=== PATIENT | male | born 2000 | race Caucasian/White ===

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

== ENCOUNTER 2022-02-05 23:10 | Emergency (ER) | payer MEDICAID ==
[~2022-02-05] VITALS: Ht 193 cm; Wt 114.0 kg
[2022-02-05 23:43] VITALS: BP 122/88
[2022-02-06] MEDS ORDERED: ACETAMINOPHEN 325MG TABLET PO ONE (00:15)
== END 2022-02-06 02:04 | disposition home or self-care (01) ==
LOC: ER 23:10
DX: S63.591A Other specified sprain of right wrist, initial encounter (principal); Y04.0XXA Assault by unarmed brawl or fight, initial encounter; Y93.89 Activity, other specified; Y92.89 Other specified places as the place of occurrence of the external cause
CPT/HCPCS: 29125; 73110; 73130; 99284

== ENCOUNTER 2022-07-20 04:06 | Emergency (ER) | payer MEDICAID ==
[~2022-07-20] VITALS: Ht 193 cm; Wt 103.6 kg
[2022-07-20] MEDS ORDERED: ONDANSETRON HCL 4MG/2ML INJ IV STA (08:18)
[2022-07-20] MEDS ORDERED: MORPHINE SULFATE 4 MG/ML CPJ (NOT FOR IM USE) IV STA (08:18)
[2022-07-20] MEDS ORDERED: SODIUM CHLORIDE 0.9% 1,000 ML IV ONE (08:30)
[2022-07-20 09:38] LABS: CLARITY URINE CLEAR (CLEAR); COLOR URINE YELLOW (YELLOW); KETONES URINE TRACE (NEGATIVE); LEUKOCYTE ESTERASE URINE NEGATIVE (NEGATIVE); NITRITE URINE NEGATIVE (NEGATIVE); OCCULT BLOOD URINE NEGATIVE (NEGATIVE); PH URINE 5.5 (4.5-8.0); PROTEIN URINE NEGATIVE (NEGATIVE); SPECIFIC GRAVITY URINE 1.024 (1.005-1.030); UROBILINOGEN URINE 0.2 E.U./dL (0.2-1.0)
[2022-07-20 09:41] LABS: BASOPHILS % 0.3 % (0.0-2.0); HEMATOCRIT. 44.1 % (42.0-52.0); HEMOGLOBIN. 15.1 g/dL (14.0-18.0); LYMPHOCYTES % 22.2 % (20.0-50.0); MEAN CORPUSCULAR HEMOGLOBIN 29.9 pg (28.0-32.0); MEAN CORPUSCULAR VOLUME 87.1 fL (80.0-94.0); MEAN PLATELET VOLUME 7.9 fl (7.4-10.4); MONOCYTES % 7.4 % (2.0-8.0); NEUTROPHILS % 69.1 % (40.0-76.0); PLATELET 282 x1000/uL (130-400); RED BLOOD CELL COUNT 5.06 mill/uL (4.7-6.1); RED CELL DISTRIBUTION WIDTH 13.6 % (11.6-14.6)
[2022-07-20 10:00] LABS: *AMPHETAMINES SCREEN URINE NEGATIVE (NEGATIVE); *BARBITURATES SCREEN URINE NEGATIVE (NEGATIVE); *BENZODIAZEPINES SCREEN URINE NEGATIVE (NEGATIVE); *COCAINE SCREEN URINE NEGATIVE (NEGATIVE); CANNABINOID URINE SCREEN PRESUMTIVE POSITIVE (NEGATIVE); METHADONE URINE SCREEN NEGATIVE (NEGATIVE); OPIATES URINE SCREEN NEGATIVE (NEGATIVE); PHENCYCLIDINE URINE SCREEN NEGATIVE (NEGATIVE)
[2022-07-20 10:10] LABS: CHLORIDE 105 mEq/L (98-107)
[2022-07-20 10:19] LABS: ETHANOL BLOOD < 10 mg/dL
[2022-07-20] MEDS ORDERED: MORPHINE SULFATE 4 MG/ML CPJ (NOT FOR IM USE) IV NR (10:30)
[2022-07-20] MEDS ORDERED: ONDANSETRON HCL 4MG/2ML INJ IV NR (10:30)
[2022-07-20] MEDS ORDERED: OMEP20CA14 MT (12:01)
[2022-07-20] MEDS ORDERED: ONDA4TAB11 PO (12:01)
[2022-07-20 13:08] VITALS: BP 109/81
== END 2022-07-20 13:11 | disposition home or self-care (01) ==
LOC: ER 04:06
DX: R10.32 Left lower quadrant pain (principal); R11.0 Nausea; R55 Syncope and collapse; Z90.49 Acquired absence of other specified parts of digestive tract
CPT/HCPCS: 36415; 74176; 80053; 80305; 80320; 81003; 83690; 85025; 93005; 96361; 96374; 96375; 99285; J2270; J2405; J7030; G0480